=== PATIENT | female | born 1935 | race Caucasian/White ===

== ENCOUNTER 2017-07-18 08:45 | Outpatient (CLI) | payer MEDICARE, BC ==
--- NOTE | 2017-07-18 12:05 | Diagnostic Imaging Report ---
Indication: Abdominal pain Technique: Spiral acquisitions obtained through the abdomen and pelvis. Patient given oral contrast. No IV contrast utilized, per referring physician request.. Multiplanar reconstructions were generated. Total dose length product 954.74 mGycm. CTDIvol(s) 18.16 mGy. Dose reduction achieved using automated exposure control Comparison: None Findings: There is a moderate to large hiatal hernia. The appendix is normal. There is fairly extensive colonic diverticulosis. No evidence of diverticulitis. No small bowel distention. Contrast is seen throughout the entirety of the small bowel, reaching as far distally as the splenic flexure of the colon. No free or loculated intraperitoneal air or fluid is evident. The liver contains multiple cysts, as well as several subcentimeter low-attenuation lesions which are too small to characterize. The gallbladder, bile ducts, pancreas, spleen, adrenals are unremarkable. The right kidney demonstrates an upper pole cyst. Both kidneys demonstrate subcentimeter low-attenuation lesions which are too small to characterize. There is evidence of renal cortical scarring bilaterally. No definite renal or ureteral calculi. Bilateral renal sinus calcifications are probably arterial. No hydronephrosis or hydroureter. The uterus and adnexal structures appear unremarkable. No pelvic mass or adenopathy. No retroperitoneal or mesenteric mass or adenopathy. The distal abdominal aorta demonstrates focal saccular ectasia but is not frankly aneurysmal. The included lung bases demonstrate very focal honeycombing at the periphery of the right middle lobe. A single bulla is seen in the right lower lobe. Multiple subpleural opacities measuring under 5 mm are seen bilaterally. Reticular opacities are seen in the inferior lingula. The bones demonstrate old fracture deformities of the posterior 11th and 12th ribs. There is a vertebral planum first/compression fracture deformity of the L1 vertebral body with approximately 60% height loss. There is a mild wedge compression fracture deformity of the L4 vertebral body.. Impression: No definite acute process L1 and L4 vertebral body compression fracture deformities, age indeterminate. Consider MRI for better characterization of these are clinically relevant Moderate to large hiatal hernia Colonic diverticulosis. No evidence of diverticulitis Bilateral basilar pulmonary parenchymal nodules, under [address] in 6-12 months for follow-up if there is significant smoking history or other risk factors for lung carcinoma. Other chronic appearing pulmonary parenchymal changes, as described, including a right lower lobe cyst or bulla Old healed right rib fracture deformities Multiple liver cysts. Multiple subcentimeter low-attenuation liver lesions which are too small to characterize. Right upper pole renal cyst, and bilateral low-attenuation renal lesions are too small to characterize. No further follow-up necessary Bilateral renal cortical scarring The CT scanner at [facility] is accredited by the [employer] and the scans are performed using protocols designed to limit radiation exposure to as low as reasonably achievable to attain images of sufficient resolution adequate for diagnostic evaluation.
== END 2017-07-18 10:45 | disposition home or self-care (01) ==
LOC: CAT 08:45
DX: R10.9 Unspecified abdominal pain (principal); K44.9 Diaphragmatic hernia without obstruction or gangrene; K57.30 Diverticulosis of large intestine without perforation or abscess without bleeding; K76.89 Other specified diseases of liver; N20.0 Calculus of kidney
CPT/HCPCS: 74176